=== PATIENT | female | born 1985 ===

== ENCOUNTER 2023-04-09 16:23 | Emergency (ER) | payer BC ==
[2023-04-09 17:57] LABS: BASOPHILS ABSOLUTE AUTO 0.02 K/uL (0.00-0.20); BASOPHILS PERCENT AUTO 0.2 % (0.0-1.0); EOSINOPHILS ABSOLUTE AUTO 0.03 K/uL (0.00-0.45); EOSINOPHILS PERCENT AUTO 0.3 % (0.0-6.0); HEMATOCRIT 39.2 % (37.0-47.0); HEMOGLOBIN 13.4 g/dL (12.0-16.0); IMMATURE GRAN ABSOLUTE AUTO 0.04 K/uL (0.00-0.05); IMMATURE GRAN PERCENT AUTO 0.5 % (0.0-0.4); LYMPHOCYTES ABSOLUTE AUTO 0.44 K/uL (1.00-4.80); LYMPHOCYTES PERCENT AUTO 5.1 % (24.0-44.0); MEAN CORPUSCULAR HEMOGLOBIN 29.7 pg (28.0-32.0); MEAN CORPUSCULAR HGB CONC 34.2 g/dL (32.0-36.0); MEAN CORPUSCULAR VOLUME 86.9 fL (83.0-99.0); MEAN PLATELET VOLUME 10.2 fL (9.4-12.3); MONOCYTES ABSOLUTE AUTO 0.56 K/uL (0.00-0.80); MONOCYTES PERCENT AUTO 6.5 % (0.0-8.0); NEUTROPHILS ABSOLUTE AUTO 7.59 K/uL (1.80-7.70); NEUTROPHILS PERCENT AUTO 87.4 % (41.0-71.0); PLATELET COUNT,PLT 182 K/uL (150-400); RED BLOOD CELL COUNT 4.51 M/uL (4.10-5.30); WHITE BLOOD CELL COUNT,WBC 8.68 K/uL (3.9-11.3)
[2023-04-09 18:01] LABS: CORONAVIRUS COVID-19 NAA NEGATIVE (NEGATIVE); INFLUENZA A NAA POSITIVE (NEGATIVE); INFLUENZA B NAA NEGATIVE (NEGATIVE); RESPIRATORY SYNCYTIAL VIR NAA NEGATIVE (NEGATIVE)
[2023-04-09] MEDS: Acetaminophen 500 MG Tab PO STA (18:02)
[2023-04-09] MEDS: Ketorolac 30 MG/ML SDV IVPUSH STA (18:02)
[2023-04-09] MEDS: cefTRIAXone 1 GM in Sodium Chloride 0.9% 50 ML IV STA (18:04)
[2023-04-09] MEDS: Sodium Chloride 0.9% 1,000 ML IV STA (18:04)
[2023-04-09] MEDS: Sodium Chloride 0.9% 2.5 ML Syringe FLUSH PRN (18:09)
[2023-04-09] MEDS: Sodium Chloride 0.9% 10 ML Syringe FLUSH PRN (18:09)
[2023-04-09 18:38] LABS: ALBUMIN 3.8 g/dL (3.4-5.0); BILIRUBIN TOTAL 0.5 mg/dL (0.2-1.0); CALCIUM 8.3 mg/dL (8.5-10.1); CARBON DIOXIDE,CO2 24.6 mmol/L (21.0-32.0); CREATININE 0.9 mg/dL (0.6-1.0); EST CRCL DRUG DOSING (CG) 78.51 mL/min; POTASSIUM,K 4.1 mmol/L (3.5-5.1); PROTEIN TOTAL,TP 7.6 g/dL (6.4-8.2)
[2023-04-09 20:05] VITALS: BP 108/67; PULSE 78
== END 2023-04-09 20:05 | disposition home or self-care (01) ==
LOC: MW.ED 16:23
DX: J10.1 Influenza due to other identified influenza virus with other respiratory manifestations (principal); H66.93 Otitis media, unspecified, bilateral
CPT/HCPCS: 0241U; 36415; 71046; 80053; 83605; 83690; 84703; 85025; 87040; 96365; 96375; 99284; A9270; J0696; J1885; J3490; J7030

== ENCOUNTER 2024-08-10 08:30 | Observation (INO) | payer BC ==
[2024-08-10] MEDS ORDERED: Sodium Chloride 0.9% 20 ML SDV IV PRN (08:38)
[2024-08-10] MEDS: Ondansetron 4 MG/2 ML SDV IVPUSH ONE (08:44)
[2024-08-10] MEDS: Sodium Chloride 0.9% 1,000 ML IV ONE (08:44)
[2024-08-10] MEDS ORDERED: Naloxone 0.4 MG/ML SDV IVPUSH PRN ×2 (08:45→09:56)
[2024-08-10] MEDS: Morphine 2 MG/ML SYRINGE IVPUSH ONE ×2 (08:48→10:00)
[2024-08-10 08:49] LABS: BASOPHILS ABSOLUTE AUTO 0.04 K/uL (0.00-0.20); BASOPHILS PERCENT AUTO 0.3 % (0.0-1.0); EOSINOPHILS ABSOLUTE AUTO 0.02 K/uL (0.00-0.45); EOSINOPHILS PERCENT AUTO 0.2 % (0.0-6.0); HEMATOCRIT 40.3 % (37.0-47.0); HEMOGLOBIN 13.7 g/dL (12.0-16.0); IMMATURE GRAN ABSOLUTE AUTO 0.04 K/uL (0.00-0.05); IMMATURE GRAN PERCENT AUTO 0.3 % (0.0-0.4); LYMPHOCYTES ABSOLUTE AUTO 1.25 K/uL (1.00-4.80); LYMPHOCYTES PERCENT AUTO 10.3 % (24.0-44.0); MEAN CORPUSCULAR HEMOGLOBIN 29.7 pg (28.0-32.0); MEAN CORPUSCULAR VOLUME 87.2 fL (83.0-99.0); MEAN PLATELET VOLUME 9.8 fL (9.4-12.3); MONOCYTES ABSOLUTE AUTO 0.45 K/uL (0.00-0.80); MONOCYTES PERCENT AUTO 3.7 % (0.0-8.0); NEUTROPHILS ABSOLUTE AUTO 10.29 K/uL (1.80-7.70); NEUTROPHILS PERCENT AUTO 85.2 % (41.0-71.0); PLATELET COUNT,PLT 263 K/uL (150-400); RED BLOOD CELL COUNT 4.62 M/uL (4.10-5.30); WHITE BLOOD CELL COUNT,WBC 12.09 K/uL (3.9-11.3)
[2024-08-10 09:44] LABS: LACTIC ACID 0.9 mmol/L (0.4-2.0)
[2024-08-10 10:07] LABS: A/G RATIO 1.2 (0.9-1.6); ALANINE AMINOTRANSFERASE,ALT 34 IU/L (14-63); ALBUMIN 4.1 g/dL (3.4-5.0); ALKALINE PHOSPHATASE 46 U/L (46-116); ASPARTATE AMNIOTRANSFERASE,AST 17 IU/L (15-37); BILIRUBIN TOTAL 0.4 mg/dL (0.2-1.0); BLOOD UREA NITROGEN,BUN 14 mg/dL (7.0-18.0); CALCIUM 8.5 mg/dL (8.5-10.1); CHLORIDE,CL 105 mmol/L (98-107); EST CRCL DRUG DOSING (CG) 69.31 mL/min; GLUCOSE RANDOM 113 mg/dL (74-106); LIPASE 62 U/L (16-77); MAGNESIUM 2.2 mg/dL (1.8-2.4); POTASSIUM,K 4.7 mmol/L (3.5-5.1); PROTEIN TOTAL,TP 7.6 g/dL (6.4-8.2); SODIUM,NA 141 mmol/L (136-145)
[2024-08-10 10:08] LABS: C-REACTIVE PROTEIN < 0.05 mg/dL (<0.3); ESTIMATED GFR 74 mL/min (>60)
[2024-08-10] MEDS: Ketorolac 30 MG/ML SDV IVPUSH ONE (11:47)
[2024-08-10] MEDS ORDERED: cefTRIAXone 2 GM in Sodium Chloride 0.9% 100 ML IV ONE (12:00)
[2024-08-10] MEDS: Sodium Chloride 0.9% 2.5 ML Syringe FLUSH PRN (12:23)
[2024-08-10] MEDS: Sodium Chloride 0.9% 10 ML Syringe FLUSH PRN (12:23)
[2024-08-10] MEDS: cefTRIAXone 2 GM in Water For Injection, Sterile 20 ML IVPUSH ONE (12:23)
[2024-08-10] MEDS ORDERED: Sodium Chloride 0.9% 2.5 ML Syringe FLUSH PRN (14:10)
[2024-08-10] MEDS ORDERED: Ondansetron 4 MG/2 ML SDV IVPUSH PRN ×2 (14:10→23:35)
[2024-08-10] MEDS ORDERED: Sodium Chloride 0.9% 10 ML Syringe FLUSH PRN (14:10)
[2024-08-10] MEDS ORDERED: Ketorolac 30 MG/ML SDV IM PRN (14:10)
[2024-08-10] MEDS: metroNIDAZOLE/Normal Saline 500 MG in Premix Bag 1 BAG IV SCH ×2 (14:30→17:34)
[2024-08-10] MEDS: Doxycycline 100 MG in Sodium Chloride 0.9% 100 ML IV SCH (14:30)
[2024-08-10] MEDS: Acetaminophen 325 MG Tab PO PRN (15:05)
[2024-08-10] MEDS ORDERED: Ketorolac 30 MG/ML SDV IVPUSH PRN (15:17)
[2024-08-10] MEDS ORDERED: oxyCODONE 5 MG Tab PO PRN (15:54)
[2024-08-10] MEDS: Morphine 2 MG/ML SYRINGE IVPUSH PRN (16:01)
[2024-08-10] MEDS: Gadoteridol 279.3 MG/ML 20 ML SDV IVPUSH ONE (16:34)
[2024-08-10] MEDS: Acetaminophen 325 MG Tab PO SCH ×2 (17:04→21:41)
[2024-08-10] MEDS: Ketorolac 30 MG/ML SDV IVPUSH SCH (17:34)
[2024-08-10] MEDS: Sodium Chloride 0.9% 1,000 ML IV SCH (17:48)
[2024-08-10 19:30] LABS: APPEARANCE,URINE CLEAR; BILIRUBIN,URINE NEGATIVE (NEGATIVE); COLOR,URINE YELLOW; GLUCOSE,URINE NEGATIVE (NEGATIVE); KETONES,URINE NEGATIVE (NEGATIVE); LEUKOCYTE ESTERASE,URINE NEGATIVE (NEGATIVE); NITRITE,URINE NEGATIVE (NEGATIVE); OCCULT BLOOD,URINE NEGATIVE (NEGATIVE); PROTEIN,URINE NEGATIVE (NEGATIVE); UROBILINOGEN,URINE 0.2 EU/dL (<2.0)
[2024-08-10] MEDS ORDERED: Midazolam 1 MG/ML 2 ML SDV ONE (19:35)
[2024-08-10] MEDS ORDERED: Rocuronium Bromide 50 MG/5 ML Syringe ONE ×2 (19:35→21:19)
[2024-08-10] MEDS ORDERED: fentaNYL 100 MCG/2 ML SDV ONE (19:35)
[2024-08-10] MEDS ORDERED: Dexamethasone 4 MG/ML 5 ML MDV ONE (19:35)
[2024-08-10] MEDS ORDERED: Lidocaine 1% 5 ML VIAL ONE (19:35)
[2024-08-10] MEDS ORDERED: Propofol 200 MG/20 ML SDV ONE (19:35)
[2024-08-10] MEDS ORDERED: Ondansetron 4 MG/2 ML SDV ONE (19:35)
[2024-08-10] MEDS ORDERED: Ketorolac 30 MG/ML SDV ONE (19:35)
[2024-08-10] MEDS ORDERED: Phenylephrine HCl In 0.9% NaCl 1 MG/10 ML Syringe ONE (20:44)
[2024-08-10] MEDS ORDERED: Bupivacaine 0.25% 30 ML SDV ONE (20:47)
[2024-08-10] MEDS ORDERED: Sugammadex Sodium 200 MG/2 ML VIAL IV ONE (20:50)
[2024-08-10] MEDS ORDERED: Promethazine 25 MG/ML SDV IM PRN (23:35)
[2024-08-10] MEDS ORDERED: Docusate Sodium 100 MG Cap PO PRN (23:35)
[2024-08-10] MEDS ORDERED: Morphine 4 MG/ML Syringe IVPUSH PRN (23:35)
[2024-08-11] MEDS: fentaNYL 50 MCG/ML SDV ONE (00:33)
[2024-08-11] MEDS: Ketorolac 30 MG/ML SDV IVPUSH ONE (00:33)
[2024-08-11] MEDS: Acetaminophen 500 MG Tab PO SCH (00:34)
[2024-08-11 07:35] LABS: BASOPHILS ABSOLUTE AUTO 0.01 K/uL (0.00-0.20); BASOPHILS PERCENT AUTO 0.1 % (0.0-1.0); HEMOGLOBIN 11.9 g/dL (12.0-16.0); IMMATURE GRAN ABSOLUTE AUTO 0.03 K/uL (0.00-0.05); IMMATURE GRAN PERCENT AUTO 0.3 % (0.0-0.4); LYMPHOCYTES ABSOLUTE AUTO 0.42 K/uL (1.00-4.80); LYMPHOCYTES PERCENT AUTO 4.6 % (24.0-44.0); MEAN CORPUSCULAR HEMOGLOBIN 29.7 pg (28.0-32.0); MEAN CORPUSCULAR VOLUME 87.3 fL (83.0-99.0); MEAN PLATELET VOLUME 10.3 fL (9.4-12.3); MONOCYTES ABSOLUTE AUTO 0.07 K/uL (0.00-0.80); MONOCYTES PERCENT AUTO 0.8 % (0.0-8.0); NEUTROPHILS ABSOLUTE AUTO 8.52 K/uL (1.80-7.70); NEUTROPHILS PERCENT AUTO 94.2 % (41.0-71.0); PLATELET COUNT,PLT 214 K/uL (150-400); RED BLOOD CELL COUNT 4.01 M/uL (4.10-5.30); WHITE BLOOD CELL COUNT,WBC 9.05 K/uL (3.9-11.3)
[2024-08-11 07:38] LABS: A/G RATIO 1.1 (0.9-1.6); ALBUMIN 3.2 g/dL (3.4-5.0); BILIRUBIN TOTAL 0.7 mg/dL (0.2-1.0); CALCIUM 8.1 mg/dL (8.5-10.1); CARBON DIOXIDE,CO2 21.2 mmol/L (21.0-32.0); CREATININE 0.7 mg/dL (0.6-1.0); EST CRCL DRUG DOSING (CG) 99.01 mL/min; MAGNESIUM 1.7 mg/dL (1.8-2.4); POTASSIUM,K 4.1 mmol/L (3.5-5.1); PROTEIN TOTAL,TP 6.1 g/dL (6.4-8.2)
[2024-08-11] MEDS: Ketorolac 30 MG/ML SDV IVPUSH SCH (11:42)
[2024-08-11] MEDS: metroNIDAZOLE/Normal Saline 500 MG in Premix Bag 1 BAG IV SCH (11:46)
[2024-08-11 11:54] VITALS: PULSE 60
[2024-08-11] MEDS ORDERED: cefTRIAXone 1 GM in Water For Injection, Sterile 10 ML IVPUSH SCH (12:00)
[2024-08-11 12:41] VITALS: BP 103/64
== END 2024-08-11 13:17 | disposition home or self-care (01) ==
LOC: MW.ED 08:30 → INTOOBSV 13:34 → MW.MS 13:34
PROVIDERS: ADMIT Family Medicine; ATTEND Family Medicine
DX: D27.0 Benign neoplasm of right ovary (principal); N83.8 Other noninflammatory disorders of ovary, fallopian tube and broad ligament; N80.03 Adenomyosis of the uterus; N83.519 Torsion of ovary and ovarian pedicle, unspecified side; F41.9 Anxiety disorder, unspecified; F17.290 Nicotine dependence, other tobacco product, uncomplicated; Z79.899 Other long term (current) drug therapy
CPT/HCPCS: 36415; 58661; 72197; 74181; 76830; 76856; 80053; 81003; 83605; 83690; 83735; 84703; 85025; 86140; 86304; 87040; 87077; 87186; 96361; 96374; 96375; 96376; 99285; A9270; J0665; J0696; J1100; J1836; J1885; J2003; J2250; J2270; J2371; J2405; J2704; J3010; J3490; J7030; 00840; 99221; 99222; 99284; A9579